=== PATIENT | female | born 1975 | race Caucasian/White ===

== ENCOUNTER 2023-07-15 08:45 | Day surgery (SDC) | payer BC ==
[2023-07-14 12:43] LABS: Absolute Basophils 0.1 K/uL (0-0.5); Absolute Eosinophils 0.1 K/uL (0-0.5); Absolute Lymphocytes (CBC) 1.4 K/uL (0.7-4.9); Absolute Monocytes 0.4 K/uL (0.1-1.3); Absolute Neutrophil 2.8 K/uL (1.8-8.0); Basophils % 1.2 % (0-1.3); Eosinophils % 1.6 % (0-4.4); Hematocrit 38.4 % (36.0-45.0); Hemoglobin 13.2 g/dL (12.0-15.0); MCH 32.1 pg (27.0-35.0); MCHC 34.4 g/dL (32.0-36.0); MCV 93.1 fL (80-100); MPV 7.4 fL (7.6-11.3); Monocytes % 8.3 % (3.3-12.3); Neutrophils % 58.9 % (41.7-73.7); Nucleated Red Blood Cells % 0.1 % (0-0); Platelets 302 thou/uL (152-406); RBC Red Blood Cell Count 4.12 M/uL (3.86-4.86); Red Cell Distribution Width 13.3 % (12.1-15.2)
[2023-07-14 12:57] LABS: Anion Gap 7.6 mEq/L (5.0-15.0); Potassium 3.6 mEq/L (3.5-5.1)
--- NOTE | 2023-07-14 14:12 | EKG ---
Test Date: 2023-07-14 Test Time: 13:21:28 [employer] Work[employer]: OSMAR MEASUREMENT RESULTS: Intervals: Rate: 79 MI: 132 QRSD: 84 QT: 360 QTc: 412 [place]: P: 58 MI: 132 QRS: 73 T: 69 INTERPRETIVE STATEMENTS: Normal sinus rhythm Normal ECG Compared to ECG 08/19/2017 16:03:45 No significant changes Electronically Signed On 07-14-23 14:12:18 [employer]ATOR [employer] by Marco A Padilla
[2023-07-15] MEDS ORDERED: dexAMETHasone 10 MG/ML VIAL ONE (09:19)
[2023-07-15] MEDS ORDERED: EPINEPHRINE 1 MG/ML VIAL ONE (09:20)
[2023-07-15] MEDS ORDERED: MIDAZOLAM HCL 2 MG/2 ML INJ ONE (09:20)
[2023-07-15] MEDS ORDERED: FENTANYL CITR 100 MCG/2 ML ONE (09:20)
[2023-07-15] MEDS ORDERED: BUPIVACAINE 0.5% PF 10 ML VIAL ONE (09:21)
[2023-07-15] MEDS: CEFAZOLIN SODIUM 1 GM/VIAL ONE (10:47)
[2023-07-15] MEDS: Ringers Lactate 1,000 ML IV ONE (10:47)
[2023-07-15] MEDS ORDERED: NS 0.9% VIAL 10 ML ONE (11:23)
[2023-07-15] MEDS ORDERED: NS 0.9% VIAL 20 ML ONE (11:23)
[2023-07-15] MEDS ORDERED: propofoL 200 MG/20 ML VIAL IV ONE (11:46)
[2023-07-15 14:04] VITALS: BP 113/72; TEMP 97.2; O2SAT 100
--- NOTE | 2023-07-15 15:07 | RAD REPORT ---
EXAM DESCRIPTION: RAD - Forearm Left - 07/15/2023 2:17 pm CLINICAL HISTORY: ORIF COMPARISON: No comparisons FINDINGS/IMPRESSION: Eight intraoperative fluoroscopic images were submitted showing plate and screw fixation of a mid ulnar diaphyseal fracture. No radiologist was available for the procedure, nor will any image interpretation be provided. Please refer to the procedural report for additional details Fluoro time: 0.2 minutes Cumulative dose: 0.311
--- NOTE | 2023-07-15 22:18 | OP ---
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 Procedure: Left open reduction, ulnar shaft with internal fixation and small biopsy of bone. Estimated Blood Loss: 10 cc Complications: There were no complications. Specimens: There was a small piece of bone as well as slight amount of intramedullary tissue, which was sent to Pathology. Indication For Operation: The patient is a 48-year-old female who had a direct impact related to her ulna. She had immediate pain. She came to see me in my office when x-rays were taken and demonstra amber transverse ulnar shaft fracture. The radius did not appear to be fractured. 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 She does no t have a previous diagnosis of fibrous dysplasia and this may be monostotic. 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 Risks, bene fits, and alternatives of different methods of treating this were discussed with the patient, includi ng possible close management as well as open reduction and internal fixation with biopsy. The patien t selects open reduction and internal fixation with biopsy and agrees to proceed. Description Of Procedure: The patient was taken to the operating room, placed in supine position. G eneral anesthesia was easily obtained by the staff. Following this, well-padded tourniquet was place d on the superior left arm. Left upper extremity was then prepped and draped in usual sterile fashio n for procedure. Following this, the subcutaneous border of the ulna was palpated and the fracture s ite was marked using the C-arm to center the incision there. After this, a fairly extensile incision was made carefully through skin only. Meticulous hemostasis being maintained using Bovie electrocau vaibhav. Care was taken to remain dorsal as an incision was made in the fascia and the extensors were t hen gently elevated off to allow for visualization of the ulnar shaft. This was exposed dorsally, wh ich allowed for visualization of the ulnar shaft as well as the fracture site. The fracture was then reduced anatomically and an Acumed plate was then applied using only nonlocking screws and some comp ression. The C-arm was used to check the position of the plate, fracture as well as length of screws . After the ulna was secured, decision was made to somehow obtain a biopsy. There was a small read at the fracture and the drill was used slightly inferiorly to this to weaken the bone, and this was t hen completed using an osteotome and a small fragment as well as a small amount of intramedullary tis anali was then placed in the specimen cup. After this was gently irrigated, the fascia was then tacked back down with several Vicryl sutures. The skin was then closed using 2-0 Vicryl, followed by a 4-0 Monocryl stitch. This was then placed in Aquacel as well as Sof Roll and placed back into a sugar-t jarrell splint. The patient was then awakened and taken to recovery room in good condition. No complica tions. /ERIC Voice ID: [id number] Report ID: [id number]
== END 2023-07-15 13:50 | disposition home or self-care (01) ==
LOC: OR 08:45
PROVIDERS: ATTEND Orthopaedic Surgery
PROC: 0PBL0ZX Excision of Left Ulna, Open Approach, Diagnostic (ICD-10-PCS; 2023-07-15)
PROC: 0PSL04Z Reposition Left Ulna with Internal Fixation Device, Open Approach (ICD-10-PCS; principal; 2023-07-15 11:00)
DX: S52.202A Unspecified fracture of shaft of left ulna, initial encounter for closed fracture (principal); X58.XXXA Exposure to other specified factors, initial encounter
CPT/HCPCS: 36415; 80048; 85025; 88304; 88311; 93005; A4216; C1713; J0171; J0690; J1100; J2250; J2704; J3010; J7120